=== PATIENT | female | born 1965 | race Caucasian/White ===

== ENCOUNTER 2024-09-05 16:36 | Emergency (ER) | payer OTHER ==
--- OUTSIDE RECORDS SUMMARY | 2024-09-05 16:39 | XMS REPORT | Continuity of Care Document ---
Author Name Unknown Address [address] [place] [address] thconnect Address [address] [place] [address] [address] [place] [address] Care Team Providers Care Sock Knitting Machine Operator Name Role Phone JOHANNY THORNTON Primary Care Physician CARMELA Florian Attending Clinician Unavailable Payers Payer Name Policy Type Policy Number Effective Date Expirati on Date Source [employer] [id number] 2023 00:00:00 Encounters Start Date/Time End Date/Time Encounter Type Admission Type Attending Clinicians Care Facility Care Department Encounter ID Source 2023-10-29 10:25:35 2023-10-29 10:25:35 Outpatient CARMELA WOODARD [facility] [id number] [facility]
[2024-09-05] MEDS ORDERED: MECLIZINE HCL 12.5 MG TAB ONE (17:09)
[2024-09-05 17:20] LABS: Absolute Basophils 0.1 K/uL (0-0.5); Absolute Lymphocytes (CBC) 1.2 K/uL (0.7-4.9); Absolute Monocytes 0.4 K/uL (0.1-1.3); Absolute Neutrophil 7.7 K/uL (1.8-8.0); Basophils % 0.6 % (0-1.3); Eosinophils % 0.3 % (0-4.4); Hematocrit 41.3 % (36.0-45.0); Hemoglobin 13.6 g/dL (12.0-15.0); Lymphocytes % 12.9 % (15.3-44.8); MCHC 32.9 g/dL (32.0-36.0); MCV 85.2 fL (80-100); MPV 8.2 fL (7.6-11.3); Monocytes % 3.9 % (3.3-12.3); Neutrophils % 82.3 % (41.7-73.7); Platelets 270 thou/uL (152-406); RBC Red Blood Cell Count 4.84 M/uL (3.86-4.86); Red Cell Distribution Width 13.9 % (12.1-15.2)
[2024-09-05 17:30] LABS: PT Prothrombin Time 11.2 SECONDS (9.4-12.5)
[2024-09-05 17:52] LABS: ALT/SGPT 31 U/L (13-56); AST/SGOT 26 U/L (15-37); Albumin 3.1 g/dL (3.4-5.0); Albumin/Globulin Ratio 0.9 (1.1-1.8); Alkaline Phosphatase 145 U/L (45-117); BUN Blood Urea Nitrogen 9 mg/dL (7-18); Bicarbonate 28 mEq/L (21-32); Bilirubin Total 0.5 mg/dL (0.2-1.0); Globulin 3.5 g/dL (2.3-3.5); Glomerular Filtration Rate 93 ml/min (=/>90); Glucose Level 131 mg/dL (74-106); Magnesium 2.1 mg/dL (1.6-2.4); NT PRO-BNP 148 pg/mL (<125); Protein, Total 6.6 g/dL (6.4-8.2); Sodium Level 137 mEq/L (136-145)
[2024-09-05 17:57] LABS: Bilirubin Direct < 0.2 mg/dL (0-0.2); Bilirubin Indirect, Calculated 0.3 mg/dL (0.2-0.8)
--- NOTE | 2024-09-05 17:58 | RAD REPORT ---
EXAMINATION: ONE VIEW CHEST XR CLINICAL INDICATION: Female, 58 years old.,HTN TECHNIQUE: Frontal chest projection is submitted. Examination is limited by patient positioning and t echnique. COMPARISON: No prior exam. FINDINGS: The lungs are well inflated. Mild perihilar streaky opacities, also present in the medial right basal lung. No pneumothorax or sizable effusion. The heart is normal in size. IMPRESSION: Mild perihilar streaky opacities, may reflect atelectasis or reactive airway changes, less likely ear ly pneumonia.
--- NOTE | 2024-09-05 18:05 | ER ---
Nurse's Notes [facility] Name: Shweta Love Age: 58 yrs Sex: Female : 1965 Arrival Date: 09/05/2024 Time: 16:36 Bed 8 Private MD: Diagnosis: Peripheral vertigo Presentation: 09/05 16:57 Chief complaint: Patient states: woke up this morning, felt fine , at 0800 she felt iw like the room was spinning , she felt nauseated, of balance and her BP was high. Coronavirus screen: At this time, the client does not indicate any symptoms associated with coronavirus-19. 16:57 Acuity: OWEN 3 iw 17:00 Ebola Screen: No symptoms or risks identified at this time. Initial Sepsis Screen: Does iw the patient meet any 2 criteria? No. Patient's initial sepsis screen is negative. Does the patient have a suspected source of infection? No. Patient's initial sepsis screen is negative. Risk Assessment: Do you want to hurt yourself or someone else? Patient reports no desire to harm self or others. Onset of symptoms was September 05, 2024. 17:00 Method Of Arrival: Ambulatory iw Historical: - Allergies: 17:03 Sulfa (Sulfonamide Antibiotics); iw - Home Meds: 17:06 metoprolol tartrate 25 mg Oral tablet daily [Active]; lisinopril 20 mg Oral tablet 2 iw times per day [Active]; Lipitor 40 mg Oral tablet daily [Active]; Nexium 40 mg Oral capsule,delayed release (e.c.) 2 times per day [Active]; famotidine 20 mg Oral tablet daily [Active]; Ozempic 2 mg/dose (8 mg/3 mL) subcutaneous Pen Injector every week [Active]; - PMHx: 17:03 Hypertensive disorder; Asthma; GERD; iw - PSHx: 17:03 Tonsillectomy; iw - Immunization history:: Adult Immunizations not up to date. - Infectious Disease History:: Denies. - Social history:: Smoking status: Patient denies any tobacco usage or history of. Screenin:[address] [facility] ED Fall Risk Assessment (Adult) History of falling in the last 3 months, iw including since admission No falls in past 3 months (0 pts) Confusion or Disorientation No (0 pts) Intoxicated or Sedated No (0 pts) Impaired Gait No (0 pts) Mobility Assist Device Used No (0 pt) Altered Elimination No (0 pt) Score/Fall Risk Level 0 - 2 = Low Risk Oriented to surroundings, Maintained a safe environment. Abuse screen: Denies threats or abuse. Nutritional screening: No deficits noted. Tuberculosis screening: No symptoms or risk factors identified. Assessment: 17:14 General: Appears in no apparent distress. Behavior is calm, cooperative. Pain: Denies iw pain. Neuro: Level of Consciousness is awake, alert, obeys commands, Oriented to person, place, time, situation, Moves all extremities. Full function. Neuro: Reports dizziness, headache. Cardiovascular: Patient's skin is warm and dry. Respiratory: Respiratory effort is even, unlabored, Respiratory pattern is regular, symmetrical. GI: Abdomen is non-distended, Reports nausea. Derm: Skin is intact, is healthy with good turgor. Musculoskeletal: Range of motion: intact in all extremities. 17:45 Reassessment: Patient appears in no apparent distress at this time. Patient and/or iw family updated on plan of care and expected duration. Pain level reassessed. Patient is alert, oriented x 3, equal unlabored respirations, skin warm/dry/pink. 18:30 Reassessment: Patient appears in no apparent distress at this time. Patient and/or iw family updated on plan of care and expected duration. Pain level reassessed. Patient is alert, oriented x 3, equal unlabored respirations, skin warm/dry/pink. Patient states feeling better. Patient states symptoms have improved. Vital Signs: 17:00 BP 167 / 78; Pulse 79; Resp 16; Temp 98.1; Pulse Ox 97% on R/A; Weight 129.27 kg; iw Height 5 ft. 2 in. ; Pain 2/10; 18:30 BP 157 / 72; Pulse 67; Resp 16; Pulse Ox 98% on R/A; iw 17:00 Body Mass Index 52.13 (129.27 kg, 157.48 cm) iw 17:00 Pain Scale: Adult iw ED Course: 16:40 Patient arrived in ED. im 16:43 Harsh Hernandez MD is Attending Physician. sp3 16:46 Lynn Otero, ALFONSO is Primary Nurse. iw 17:00 Triage completed. iw 17:00 Inserted saline lock: 20 gauge in left antecubital area, using aseptic technique. Blood rs5 collected. Flushed with 10 mL NS. 17:04 Arm band placed on. iw 17:49 XRAY Chest (1 view) In Process Unspecified. EDMS 18:31 Patient has correct armband on for positive identification. Provided Education on: iw prescriptions . 18:31 No provider procedures requiring assistance completed. IV discontinued, intact, iw bleeding controlled, No redness/swelling at site. Pressure dressing applied. Administered Medications: 17:13 Drug: Meclizine PO 25 mg PO once Route: PO; iw 18:30 Follow up: Response: No adverse reaction iw Medication: 18:31 VIS not applicable for this client. iw Outcome: 18:04 Discharge ordered by MD. plascencia 18:31 Discharged to home via wheelchair, with family, iw 18:31 Condition: good 18:31 Discharge instructions given to patient, family, Instructed on discharge instructions, follow up and referral plans. medication usage, Demonstrated understanding of instructions, follow-up care, medications, Prescriptions given X 1, 18:32 Patient left the ED. iw Signatures: Dispatcher [employer] EDMS Lynn Otero, RN RN iw Harsh Hernandez MD MD sp3 David Corado RN RN rs5 Ally Orourke
--- NOTE | 2024-09-05 18:05 | EDPHYS ---
Physician Documentation [facility] Name: Shweta Love Age: 58 yrs Sex: Female : 1965 Arrival Date: 09/05/2024 Time: 16:36 Bed 8 Private MD: ED Physician Harsh Hernandez HPI: 09/05 17:07 This 58 yrs old Female presents to ER via Ambulatory with complaints of High Blood sp3 Pressure, Dizziness. 17:07 58-year-old female with history of hypertension, asthma, GERD now presents to the ED sp3 with chief complaint of vertigo symptoms with room spinning worsening with motion coupled with nausea and emesis x 1. Symptoms started initially yesterday and progressed into today. She denies any other symptoms including other neurological deficits, speech changes, memory loss, trauma, headache, neck pain, chest pain, shortness of breath, abdominal pain, known sick contacts, travel history, prolonged immobilization, or any other signs or symptoms on ROS at this time. Patient recently had an MRI/MRA performed approximately 6 months ago due to some vision loss symptoms she had been having and that workup was negative. She saw a neurologist and had a complete workup done. She was also cleared from a cardiac standpoint.. Historical: - Allergies: 17:03 Sulfa (Sulfonamide Antibiotics); iw - Home Meds: 17:06 metoprolol tartrate 25 mg Oral tablet daily [Active]; lisinopril 20 mg Oral tablet 2 iw times per day [Active]; Lipitor 40 mg Oral tablet daily [Active]; Nexium 40 mg Oral capsule,delayed release (e.c.) 2 times per day [Active]; famotidine 20 mg Oral tablet daily [Active]; Ozempic 2 mg/dose (8 mg/3 mL) subcutaneous Pen Injector every week [Active]; - PMHx: 17:03 Hypertensive disorder; Asthma; GERD; iw - PSHx: 17:03 Tonsillectomy; iw - Immunization history:: Adult Immunizations not up to date. - Infectious Disease History:: Denies. - Social history:: Smoking status: Patient denies any tobacco usage or history of. ROS: 17:08 Constitutional: Negative for fever, chills, and weight loss, Eyes: Negative for injury, sp3 pain, redness, and discharge, Neck: Negative for injury, pain, and swelling, Cardiovascular: Negative for chest pain, palpitations, and edema, Respiratory: Negative for shortness of breath, cough, wheezing, and pleuritic chest pain, Abdomen/GI: Negative for abdominal pain, nausea, vomiting, diarrhea, and constipation, Back: Negative for injury and pain, MS/Extremity: Negative for injury and deformity, Skin: Negative for injury, rash, and discoloration, Psych: Negative for depression, anxiety, suicide ideation, homicidal ideation, and hallucinations, Allergy/Immunology: Negative for hives, rash, and allergies, Endocrine: Negative for neck swelling, polydipsia, polyuria, polyphagia, and marked weight changes, Hematologic/Lymphatic: Negative for swollen nodes, abnormal bleeding, and unusual bruising, 17:08 All other systems are negative, Exam: 17:08 Constitutional: This is a well developed, well nourished patient who is awake, alert, sp3 and in no acute distress. Head/Face: Normocephalic, atraumatic. Eyes: Pupils equal round and reactive to light, extra-ocular motions intact. Lids and lashes normal. Conjunctiva and sclera are non-icteric and not injected. Cornea within normal limits. Periorbital areas with no swelling, redness, or edema. ENT: Nares patent. No nasal discharge, no septal abnormalities noted. External auditory canals are clear. Oropharynx with no redness, swelling, or masses, exudates, or evidence of obstruction, uvula midline. Mucous membranes moist. Neck: Trachea midline, no thyromegaly or masses palpated, and no cervical lymphadenopathy. Supple, full range of motion without nuchal rigidity, or vertebral point tenderness. No Meningismus. Chest/axilla: Normal chest wall appearance and motion. Nontender with no deformity. No lesions are appreciated. Cardiovascular: Regular rate and rhythm with a normal S1 and S2. No gallops, murmurs, or rubs. Normal PMI, no JVD. No pulse deficits. Respiratory: Lungs have equal breath sounds bilaterally, clear to auscultation and percussion. No rales, rhonchi or wheezes noted. No increased work of breathing, no retractions or nasal flaring. Abdomen/GI: Soft, non-tender, with normal bowel sounds. No distension or tympany. No guarding or rebound. No evidence of tenderness throughout. Back: No spinal tenderness. No costovertebral tenderness. Full range of motion. Skin: Warm, dry with normal turgor. Normal color with no rashes, no lesions, and no evidence of cellulitis. MS/ Extremity: Pulses equal, no cyanosis. Neurovascular intact. Full, normal range of motion. Neuro: Awake and alert, GCS 15, oriented to person, place, time, and situation. Cranial nerves II-XII grossly intact. Motor strength 5/5 in all extremities. Sensory grossly intact. Cerebellar exam normal. Normal gait. Psych: Awake, alert, with orientation to person, place and time. Behavior, mood, and affect are within normal limits. 17:08 ECG was reviewed by the Attending Physician. EKG demonstrates normal sinus rhythm at 75 bpm with normal intervals, normal QRS, normal axis, and normal ST/T-segment's without evidence of acute ischemia. Vital Signs: 17:00 BP 167 / 78; Pulse 79; Resp 16; Temp 98.1; Pulse Ox 97% on R/A; Weight 129.27 kg; iw Height 5 ft. 2 in. ; Pain 2/10; 18:30 BP 157 / 72; Pulse 67; Resp 16; Pulse Ox 98% on R/A; iw 17:00 Body Mass Index 52.13 (129.27 kg, 157.48 cm) iw 17:00 Pain Scale: Adult iw MDM: 16:46 Patient medically screened. sp3 17:09 Data reviewed: vital signs, nurses notes, lab test result(s), EKG, radiologic studies. sp3 ED course: 58-year-old female with vertigo. Differential diagnosis includes viral illness, labyrinthitis, general peripheral vertigo. I am not highly suspicious of acute coronary syndrome, CVA/TIA spectrum, ICH, or any other significant findings. Patient had normal MRI/MRA recently. She has a neurology appointment in approximately 4 weeks in [place] as routine follow-up. She is here visiting. General labs pending. EKG is normal. Meclizine will be given p.o. Probable discharge if workup is negative and patient is improved.. 18:04 ED course: Patient improved with medication. I believe patient's symptoms were likely sp3 due to peripheral vertigo. We will discharge her on meclizine p.o. and follow-up with her PCP.. 09/05 16:47 Order name: Basic Metabolic Panel; Complete Time: 18:01 sp3 09/05 16:47 Order name: CBC with Diff; Complete Time: 18:01 sp3 09/05 16:47 Order name: LFT's; Complete Time: 18:01 sp3 09/05 16:47 Order name: Magnesium; Complete Time: 18:01 sp3 09/05 16:47 Order name: NT PRO-BNP; Complete Time: 18:01 sp3 09/05 16:47 Order name: PT-INR; Complete Time: 18:01 sp3 09/05 16:47 Order name: Troponin HS; Complete Time: 18:01 sp3 09/05 16:47 Order name: XRAY Chest (1 view); Complete Time: 18:01 sp3 09/05 16:47 Order name: Cardiac monitoring; Complete Time: 17:13 sp3 09/05 16:47 Order name: EKG - Nurse/Tech; Complete Time: 17:03 sp3 09/05 16:47 Order name: IV Saline Lock; Complete Time: 17:13 sp3 09/05 16:47 Order name: Labs collected and sent; Complete Time: 17:13 sp3 09/05 16:47 Order name: O2 Per Protocol; Complete Time: 17:13 sp3 09/05 16:47 Order name: O2 Sat Monitoring; Complete Time: 17:13 sp3 Administered Medications: 17:13 Drug: Meclizine PO 25 mg PO once Route: PO; iw 18:30 Follow up: Response: No adverse reaction iw Disposition Summary: 09/05/24 18:04 Discharge Ordered Notes: Location: Home sp3 Condition: Stable sp3 Diagnosis - Peripheral vertigo sp3 Followup: sp3 - With: Private Physician - When: Upon discharge from the Emergency Department - Reason: Continuance of care Discharge Instructions: - Discharge Summary Sheet sp3 - Vertigo sp3 Forms: - Medication Reconciliation Form sp3 - Antibiotic Education sp3 - Prescription Opioid Use sp3 - Patient Portal Instructions sp3 - Leadership Thank You Letter sp3 Prescriptions: - Meclizine 25 mg Oral Tablet - take 1 tablet ORAL route every 8 hours As needed; 30 tablet; Refills: 0, sp3 Product Selection Permitted Signatures: Dispatcher [employer] Lynn Villareal RN RN aHrsh Wylie MD MD sp3 Corrections: (The following items were deleted from the chart) 16:47 16:47 BASIC METABOLIC PANEL+C.LAB.BRZ ordered. EDMS EDMS 16:47 16:47 CBC+H.LAB.BRZ ordered. EDMS EDMS 16:47 16:47 HEPATIC FUNCTION+C.LAB.BRZ ordered. EDMS EDMS 16:47 16:47 MAGNESIUM+C.LAB.BRZ ordered. EDMS EDMS 16:47 16:47 PROBNP+C.LAB.BRZ ordered. EDMS EDMS 16:47 16:47 PROTIME (+INR)+COAG.LAB.BRZ ordered. EDMS EDMS 16:47 16:47 Troponin High Sensitivity+C.LAB.BRZ ordered. EDMS EDMS 16:47 16:47 Chest Single View+RAD.RAD.BRZ ordered. EDMS EDMS
[2024-09-05 18:36] VITALS: TEMP 98.1
[2024-09-05 18:38] VITALS: BP 157/72; O2SAT 98
--- NOTE | 2024-09-06 11:53 | EKG ---
Test Date: 2024-09-05 Test Time: 16:58:13 Keying Machine Operator: ES MEASUREMENT RESULTS: Intervals: Rate: 75 DE: 172 QRSD: 74 QT: 392 QTc: 437 Lovilia: P: 26 DE: 172 QRS: 24 T: 33 INTERPRETIVE STATEMENTS: Normal sinus rhythm Low voltage QRS Borderline ECG No previous ECG available for comparison Electronically Signed On 09-06-24 11:51:31 CDT by Abdirahman Smalls
== END 2024-09-05 18:32 | disposition home or self-care (01) ==
LOC: ER 16:36
DX: H81.399 Other peripheral vertigo, unspecified ear (principal); I10 Essential (primary) hypertension
CPT/HCPCS: 93005; 85025; 80048; 36415; 83735; 85610; 80076; 84484; 83880; 71045; 99284; J8597